=== PATIENT | female | born 1995 ===

== ENCOUNTER 2018-12-10 11:19 | Emergency (ER) | payer OTHER ==
[~2018-12-10] VITALS: Ht 165.1 cm; Wt 65.8 kg
== END 2018-12-10 14:31 | disposition home or self-care (01) ==
LOC: ER 11:19
DX: S90.112A Contusion of left great toe without damage to nail, initial encounter (principal); W22.8XXA Striking against or struck by other objects, initial encounter; Y93.89 Activity, other specified; Y92.098 Other place in other non-institutional residence as the place of occurrence of the external cause; Y99.8 Other external cause status